=== PATIENT | female | born 1955 | race Caucasian/White ===

== ENCOUNTER 2024-03-06 11:31 | Emergency (ER) | payer OTHER ==
[~2024-03-06] VITALS: Ht 160 cm; Wt 75.0 kg
[2024-03-06 11:34] VITALS: O2SAT 97
[2024-03-06] MEDS ORDERED: ACETAMINOPHEN 325MG TABLET PO ONE (12:00)
[2024-03-06 13:50] LABS: CHLORIDE 105 mEq/L (98-107); POTASSIUM 4.1 mEq/L (3.5-5.1); SODIUM 140 mEq/L (136-145)
[2024-03-06 13:51] LABS: CARBON DIOXIDE 26 mEq/L (21-32)
[2024-03-06 13:52] LABS: CALCIUM 9.3 mg/dL (8.7-10.4)
[2024-03-06 13:56] LABS: CREATININE 0.8 mg/dL (0.6-1.0); GLUCOSE 244 mg/dL (70-105)
[2024-03-06 13:57] LABS: UREA NITROGEN BLOOD 13 mg/dL (9-23)
[2024-03-06 13:59] LABS: TROPONIN I HIGH SENSITIVITY < 4 ng/L (3.0-34)
[2024-03-06 14:00] LABS: BASOPHILS % 0.6 % (0.0-2.0); EOSINOPHILS % 0.8 % (0.0-5.0); HEMATOCRIT. 40.2 % (36.0-48.0); HEMOGLOBIN. 13.3 g/dL (12.0-16.0); LYMPHOCYTES % 24.9 % (20.0-50.0); MEAN CORPUSCULAR HEMOGLOBIN 29.4 pg (28.0-32.0); MEAN CORPUSCULAR VOLUME 89.1 fL (81.0-99.0); MEAN PLATELET VOLUME 9.6 fl (7.4-10.4); MONOCYTES % 6.5 % (2.0-8.0); NEUTROPHILS % 67.2 % (40.0-76.0); PLATELET 242 x1000/uL (130-400); RED BLOOD CELL COUNT 4.51 mill/uL (4.2-5.4); RED CELL DISTRIBUTION WIDTH 13.9 % (11.6-14.6); WHITE BLOOD COUNT 6.6 x1000/uL (4.5-11.0)
[2024-03-06] MEDS: ACETAMINOPHEN 325MG TABLET PO NR (15:44)
[2024-03-06 15:45] VITALS: BP 142/87; PULSE 91; RESP 18; TEMP 36.89184; O2SAT 98
== END 2024-03-06 15:48 | disposition home or self-care (01) ==
LOC: ER 11:31
DX: R55 Syncope and collapse (principal); S80.219A Abrasion, unspecified knee, initial encounter; I10 Essential (primary) hypertension; E11.9 Type 2 diabetes mellitus without complications; X58.XXXA Exposure to other specified factors, initial encounter; Y93.89 Activity, other specified; Y92.89 Other specified places as the place of occurrence of the external cause; Y99.8 Other external cause status
CPT/HCPCS: 36415; 71045; 80048; 83880; 84484; 85025; 93005; 99285